=== PATIENT | male | born 1955 | race Caucasian/White ===

== ENCOUNTER 2017-01-17 08:57 | Day surgery (SDC) | payer OTHER ==
[~2017-01-17] VITALS: Ht 182.9 cm; Wt 68.0 kg
[~2017-01-17 08:57] MED LIST: COZ50 PO; FLO44 INH; GABA300C PO; GABA300S PO; MELA10CA PO; METO50TA PO; NIAC500T82 PO; NICOTINE; NICOTROL NS; OXY5 PO; PRAM0.5T PO; PRAV10TA2 PO; TIOT18CA INH; WARF5TAB7 PO; [UNRECOGNIZED DRUG - CODE] ORAL; [UNRECOGNIZED DRUG - CODE] PO; [UNRECOGNIZED DRUG - CODE] SL
[2017-01-17] MEDS ORDERED: MethylprednisoLONE Depot 80 mg/mL Inj IM ONE (08:58)
[2017-01-17 10:36] VITALS: BP 133/91; PULSE 66; RESP 14; O2SAT 95
[2017-01-17] MEDS ORDERED: ATRV10T PO (10:41)
[2017-01-17] MEDS ORDERED: ALBU8.5H2 INHALATION (10:41)
[2017-01-17] MEDS ORDERED: BECL8.7A5 INHALATION (10:41)
[2017-01-17 11:00] VITALS: BP 163/96; PULSE 69; RESP 16; O2SAT 95
--- NOTE | 2017-01-17 15:31 | PCM.PROC ---
Procedure Note Date of Service: Jan 17, 2017 Pre Procedure Diagnosis: PROCEDURE: Lumbar Interlaminar epidural steroid injection. RIGHT paramedian L3- L4 ASA / ANTI-COAGULATION . No asa x 7 days. INR 1.0 PRE-PROCEDURE DIAGNOSIS: Lumbar radiculopathy POST-PROCEDURE DIAGNOSIS: same INDICATION: 61-year-old patient referred by Dr. Phelps for RIGHT paramedian L3- L4 interlaminar epidural steroid injection for lumbar radiculopathy PERFORMED BY: Román Pan MD DESCRIPTION OF PROCEDURE: Patient was met in the holding area. Consent was signed, site was confirmed and all questions were answered. Patient was taken to the procedure suite and placed prone on the procedure table. Area was prepped and draped in sterile fashion. Local anesthesia with 1% lidocaine was injected. An 18-gauge Touhy needle was advanced toward the interlaminar space using fluoroscopic guidance after optimizing the AP view. A loss of resistance syringe was attached as we approached the epidural space in the lateral view. After [id number] was obtained, radioopaque contrast was injected under live fluro which confirmed epidural placement without intravascular uptake. Then , 80 mg depomedrol was injected without difficulty. ANESTHESIA: Local. EBL: None. No Blood Products Used COMPLICATIONS: None SPECIMENS: None POST-PROCEDURE DISPOSITION: Patient was returned to the holding area in stable condition. They were discharged home when all discharge criteria were met. Evaluation/Physical Exam before discharge revealed: DISCHARGE MEDICATIONS: FOLLOW UP: Followup with Dr. Phelps in 4 weeks Resumed warfarin tonight Román Pan MD * Pain Management * Anesthesiology .ED: Y: Patient given care and follow up instructions Román Pan MD Jan 17, 2017 15:31
[2017-04-11] MEDS ORDERED: METO25TA6 PO (14:37)
[2017-04-11] MEDS ORDERED: MULT-1093 PO (14:37)
[2017-04-11] MEDS ORDERED: GABA600T2 PO (14:37)
[2017-04-11] MEDS ORDERED: FLUT10.62 IH (14:37)
[2017-04-11] MEDS ORDERED: TIOT18CA3 IH (14:37)
[2017-04-11] MEDS ORDERED: LOSA50TA37 PO (14:37)
[2017-04-11] MEDS ORDERED: WARF1TAB6 PO (14:37)
== END 2017-01-17 23:59 | disposition home or self-care (01) ==
LOC: END 08:57
PROVIDERS: ATTEND Anesthesiology Pain Medicine
DX: M54.16 Radiculopathy, lumbar region (principal); M54.12 Radiculopathy, cervical region; I25.10 Atherosclerotic heart disease of native coronary artery without angina pectoris; I63.8 Other cerebral infarction; G81.91 Hemiplegia, unspecified affecting right dominant side; I48.91 Unspecified atrial fibrillation; G47.30 Sleep apnea, unspecified; F17.210 Nicotine dependence, cigarettes, uncomplicated; Z79.01 Long term (current) use of anticoagulants
CPT/HCPCS: 62323; J1040

== ENCOUNTER 2017-08-13 14:31 | Observation (INO) | payer MEDICAID, OTHER ==
[2017-08-13] VITALS (15 sets, daily range): BP systolic 137–181; BP diastolic 84–125; PULSE 70–81; RESP 11–26; O2SAT 88–98
[~2017-08-13] VITALS: Ht 182.9 cm; Wt 62.3 kg
[~2017-08-13 14:31] MED LIST changes: +ALBU8.5H2 INHALATION; +ATRV10T PO; -COZ50 PO; -FLO44 INH; +FLUT10.62 IH; -GABA300C PO; -GABA300S PO; +GABA600T2 PO; +LOSA50TA37 PO; -MELA10CA PO; +METO25TA6 PO; -METO50TA PO; +MULT-1093 PO; -NIAC500T82 PO; -NICOTINE; -NICOTROL NS; -OXY5 PO; -PRAM0.5T PO; -PRAV10TA2 PO; -TIOT18CA INH; +TIOT18CA3 IH; +WARF1TAB6 PO; -[UNRECOGNIZED DRUG - CODE] SL
--- NOTE | 2017-08-13 15:09 | ED.REPORT ---
HPI-General Illness Date of Service Aug 13, 2017 ED Provider: Maximiliano Hollis DO The pt is a 61 y/o male on Warfarin with hx of CVA, CAD, HTN, COPD, hyperlipidemia and peripheral neuropathy who is referred to the ED due to HTN and low O2. He was seen by [facility] today, at which point his blood pressure and oxygen were noted to be abnormal. The pt admits to three weeks of lightheadedness, mild headache, intermittent shortness of breath and productive cough with clear sputum. He denies chest pain or fever. The pt does not use home oxygen but does use albuterol and a QVAR inhaler daily. The pt last had his INR checked one month ago and it was 2.8. Nursing Notes Stated Complaint: HIGH BP,LOW OXYGEN Chief Complaint: General Complaint Nursing Notes Reviewed: Yes Allergies: Coded Allergies: Benzodiazepines (Verified Allergy, Intermediate, 08/13/17) bacitracin (Verified Allergy, Intermediate, 08/13/17) bacitracin zinc (Verified Allergy, Intermediate, 08/13/17) clonidine (Verified Allergy, Intermediate, 08/13/17) colistimethate sodium (Verified Allergy, Intermediate, 08/13/17) gramicidin D (Verified Allergy, Intermediate, 08/13/17) neomycin (Verified Allergy, Intermediate, 08/13/17) neomycin sulfate (Verified Allergy, Intermediate, 08/13/17) polymyxin B (Verified Allergy, Intermediate, 08/13/17) polymyxin B sulfate (Verified Allergy, Intermediate, 08/13/17) pramoxine HCl (Verified Allergy, Intermediate, 08/13/17) simvastatin (Verified Allergy, Intermediate, diahrea, 08/13/17) Scheduled Albuterol HFA (Proair HFA) 8.5 Gm Hfa.aer.ad 2 PUFFS INHALATION Q4H Atorvastatin (Lipitor) 10 Mg Tab 10 MG PO DAILY Cod Liver Oil (Cod Liver Oil) 1 Ml Oil 1 TSP ORAL DAILY Fluticasone Propionate (Flovent HFA 44 mcg) 10.6 Gm Aer.w.adap 2 PUFFS IH BID Gabapentin (Gabapentin) 600 Mg Tablet 600 MG PO QID Losartan Potassium (Losartan Potassium) 50 Mg Tablet 50 MG PO DAILY Metoprolol Tartrate (Metoprolol Tartrate) 25 Mg Tablet 25 MG PO BID Multivitamin-Min/Iron/FA/Vit K (Multi-Day Plus Minerals Tablet) 18 Mg Iron-400 Mcg-25 Mcg Tablet 1 EACH PO DAILY Tiotropium [place] (Spiriva) 18 Mcg Cap.w.dev 18 MCG IH DAILY Warfarin Sodium (Warfarin Sodium) 5 Mg Tablet 5 MG PO DAILY Warfarin Sodium (Warfarin Sodium) 1 Mg Tablet 1 MG PO DAILY 5x per week Scheduled PRN Acetamin/Butalbital/Caffeine (Butalbital/Apap/Caffeine) 1 Ea Tab 1 TAB PO Q4-6H PRN PRN General Time Seen by MD: 14:55 Chief Complaint Other (High BP/low O2) Hx Obtained From: Patient Arrived By: Walk-in Sudden in Onset?: No Symptom Duration: Since onset Recent Healthcare: No recent hospitalization, Recent doctor visit Similar Sx Previous: Yes Past Medical History Past Medical History Afib Aug 2012 Depression Anxiety PTSD ADHD CVA CAD Peripheral neuropathy Reports: COPD, Hyperlipidemia, Hypertension Past Surgical History Spinal fusion Family History stroke (father) Smoking History Current Every Day Smoker (1 PPD) Social History Chews nicotine lozenges Alcohol Use: Denies alcohol use Drug Use: THC (Former user) Other Social History: Lives alone Ambulatory Status Independent Review of Systems Full Review of Systems Constitutional: Denies: Chills, Fever Eyes: Denies: Blurred bilateral Respiratory: Reports: Prod cough, clear, Shortness of breath Cardiovascular: Denies: Chest pain GI: Denies: Abdominal pain, Vomiting Musculoskeletal: Denies: Back pain, Neck pain Skin: Denies Itching Allergy / Immune: Denies: Itching Neurologic: Reports: Headache, Lightheaded Complete sys rev & neg: except as marked. Physical Exam Vital Signs Vital Signs Date Time Temp Pulse Resp B/P Pulse Ox O2 Delivery O2 Flow Rate FiO2 08/13/17 21:00 77 15 161/87 95 Nasal Cannula 3 08/13/17 20:41 76 14 156/104 94 Nasal Cannula 3 08/13/17 20:13 81 13 172/96 Nasal Cannula 3 08/13/17 19:50 80 26 176/115 96 08/13/17 19:35 75 16 95 Nasal Cannula 4 08/13/17 19:33 76 15 173/110 95 Nasal Cannula 3 08/13/17 19:15 77 17 145/91 95 Room Air 08/13/17 19:10 77 12 181/105 94 Nasal Cannula 3 08/13/17 18:54 78 11 164/92 95 Nasal Cannula 2 08/13/17 17:13 80 14 180/96 97 Room Air 08/13/17 16:40 77 13 170/91 97 Nasal Cannula 2 08/13/17 16:22 74 20 96 Nasal Cannula 3 08/13/17 16:06 70 13 162/125 98 Nasal Cannula 08/13/17 14:39 37.0 76 24 180/115 88 Room Air Initial VS: Reviewed General/Constitutional: Well-developed, Well-nourished Head / Eyes: Atraumatic, Normocephalic, PERRL Neck: Supple, Full range of motion Cardiovascular: Regular rate & rhythm, Heart sounds normal, Intact distal pulses Abdomen / GI: Soft, Non-tender Extremities: Vascular intact, Neuro intact Skin: Warm, Dry, No cyanosis Neurologic: Alert, Oriented, Nonfocal Psychiatric: Mood/affect normal, Behavior normal Respiratory / Chest: No respiratory distress significantly prolonged expiration w/ some diffuse expiratory wheezing and rhonchi. Interpretation & Diagnostics Lab Results Interpretation Result Diagram: 08/13/17 1515 08/13/17 1515 Test 08/13/17 15:15 08/13/17 15:19 08/13/17 18:39 White Blood Count 7.6th/mm3 (3.8-10.1) Red Blood Count 5.17mil/mm3 (4.40-5.80) Hemoglobin 15.7g/dL (13.8-17.2) Hematocrit 44.9% (41.0-50.0) Mean Corpuscular Volume 86.8fL (81-100) Mean Corpuscular Hemoglobin 30.4pg (27.0-35.0) Mean Corpuscular Hemoglobin Concent 35.0% (32.0-37.0) Red Cell Distribution Width 14.0% (12.3-15.4) Platelet Count 198bil/L (150-400) Neutrophils (%) (Auto) 51.6% (40-74) Lymphocytes (%) (Auto) 32.3% (14-46) Monocytes (%) (Auto) 8.3% (4-12) Eosinophils (%) (Auto) 6.1% (0-5) Basophils (%) (Auto) 1.6% (0-3) Sodium Level 129mEq/L (134-144) Potassium Level 4.0mEq/L (3.5-5.2) Chloride Level 89mEq/L (97-108) Carbon Dioxide Level 28mmol/L (18-29) Blood Urea Nitrogen 10mg/dL (8-27) Creatinine 0.67mg/dL (0.76-1.27) Estimat Glomerular Filtration Rate 128mL/min (>59) Glucose Level 82mg/dL (60-99) Calcium Level 9.2mg/dL (8.5-10.1) Magnesium Level 1.7mg/dL (1.6-2.6) Total Bilirubin 0.9mg/dL (0.0-1.2) Aspartate Amino Transf (AST/SGOT) 22U/L (0-50) Alanine Aminotransferase (ALT/SGPT) 25U/L (0-44) Alkaline Phosphatase 91U/L (25-160) Troponin T < 0.010ug/L (0.0-0.011) Pro-B-Type Natriuretic Peptide 142.0pg/mL (0-210) Total Protein 7.5g/dL (6.4-8.4) Albumin 4.2g/dL (3.4-5.0) Procalcitonin 0.02ng/mL (0.00-0.08) D-Dimer 0.58mg/L FEU (<0.50) Urine Color Yellow (YELLOW) Urine Appearance Clear (CLEAR,HAZY) Urine pH 6.0 (5.0-8.0) Urine Specific [place] 1.005 (1.003-1.035) Urine Protein Negativemg/dL (NEG,TRACE) Urine Glucose (UA) Negativemg/dL (NEGATIVE) Urine Ketones Negativemg/dL (NEGATIVE) Urine Occult Blood Small (NEGATIVE) Urine Nitrite Negative (NEGATIVE) Urine Bilirubin Negative (NEGATIVE) Urine Urobilinogen 1.0mg/dL (NORMAL) Urine Leukocyte Esterase Negative (NEGATIVE) Urine RBC 0-2/hpf (0-2) Urine WBC 0-5/hpf (0-5) Urine Epithelial Cells None/hpf (NONE-MOD) Urine Crystals None seen (NONE SEEN) Urine Bacteria None/hpf (NONE-FEW) Urine Hyaline Casts None/lpf (NONE) Urine Granular Casts None seen (NONE SEEN) Urine Waxy Casts None seen (NONE SEEN) Urine Red Blood Cell Casts None seen (NONE SEEN) Urine White Blood Cell Casts None seen (NONE SEEN) Urine Mucus None seen (None Seen) Urine Trichomonas None seen (NONE SEEN) Urine Yeast None (NONE SEEN) Urinalysis Comment None Urine Culture Reflexed Not indicated ECG Interpretation ECG Interpretation: Sinus rhythm with rate of [address] changes Time: 14:58 Interpreted by: ED physician X-Ray Chest Interpretation Chest Xray Interpretation: IMPRESSION: 1. New bandlike opacity within the peripheral left midlung. Although this may represent consolidation and pneumonia, short term followup is recommended to demonstrate resolution as a peripheral mass lesion cannot be excluded. Dictated by: Louis Lira M.D. on 08/13/2017 at 15:53 View: AP & lat Interpretation / Wet Read by: Interpret - Radiologist CT Chest Interpretation CT ANGIO CHEST PULMONARY EMBOLISM IMPRESSION: 1. No evidence of pulmonary embolism. 2. Severe centrilobular emphysematous changes bilaterally. 3. Dependent mucus in the bilateral mainstem bronchi suggesting aspiration. 4. Mild aneurysmal dilatation of the aorta as described. 5. Small left adrenal adenoma. Dictated by: Louis Lira M.D. on 08/13/2017 at 17:17 Study type: Chest CT w contrast, CT pulm angiogram Interpretation / Wet Read by: Interpret - Radiologist Re-Eval/Medical Decision Source of Hx: Old records Time of Eval: 18:03 Re-Evaluation/Progress Note: Pt rechecked. Informed pt of diagnosis and possibility of discharge. The pt understands and agrees with the plan. Time of Eval: 18:31 Re-Evaluation/Progress Note: Pt rechecked. Options for either discharge or admission arediscussed. If the pt can get O2 to take home, he may be discharged. If he cannot, he will be admitted. Time of Eval: 18:45 Re-Evaluation/Progress Note: Pt informed of the options and conditions for him to take O2 home. He has decided on the portable O2 tank if he is discharged. Time of Eval: 19:24 Re-Evaluation/Progress Note: Pt rechecked, whose blood pressure has increased and who is not breathing as easily. The possibility of admission rather than discharge with home O2 is discussed. Time of Eval: 19:49 Re-Evaluation/Progress Note: Pt rechecked, who is stable. The plan for admission is discussed. The pt understands and agrees with the plan. All questions are addressed at this time. Consultation : Referral / Consult Name: Becca Harry Consulted With: Hospitalist Call Returned at: 20:23 Food Service Kitchen Supervisor: Will see patient, Agrees with eval, Agrees with plan, Accepts admit Counseled Regarding: Diagnosis, Lab results, Need for admission Discharge & Departure Primary Impression: COPD exacerbation Additional Impressions: Hypoxia Hyponatremia Disposition: ADMITTED TO HOSPITAL Discharge Condition All VS Reviewed: Yes Condition: Stable Referrals: Stephanie Teixeira MD (PCP) Scribe Attestation Portions of this note were transcribed by Flory Darnell and Nabor Taylor. I, Dr. Rudy Hollis personally performed the history, physical exam and medical decision-making; I reviewed and confirmed the accuracy of the information in the transcribed note. Signed by: Armida Tijerina, 08/13/17. copies to: Stephanie Teixeira MD, Gary R DO Aug 13, 2017 15:09 Flory Darnell Aug 13, 2017 15:25 NABOR TAYLOR Aug 13, 2017 21:29
[2017-08-13 15:25] LABS: BASOPHILS % (AUTO) 1.6 % (0-3); EOSINOPHILS % (AUTO) 6.1 % (0-5); MONOCYTES % (AUTO) 8.3 % (4-12); Mean Corpuscular Hemoglobin 30.4 pg (27.0-35.0); Mean Corpuscular Volume 86.8 fL (81-100); NEUTROPHILS % (AUTO) 51.6 % (40-74); Platelet Count 198 bil/L (150-400)
[2017-08-13] MEDS ORDERED: Albuterol 2.5 mg/3 mL Inhalation Solution NEB ONE ×2 (15:50→19:30)
[2017-08-13] MEDS ORDERED: Albuterol-Ipratropium 3 mL Inhalation Solution NEB ONE (15:50)
--- NOTE | 2017-08-13 15:59 | DRSVH ---
6 [id number]: X-RAY CHEST, TWO VIEWS ([id number]) INDICATIONS: SHORT OF BREATH TECHNIQUE: 2 views of the chest were acquired. COMPARISON: [facility], , CHEST 2VW, 03/06/2015, 15:53. FINDINGS: Surgical changes and devices: None. Lungs and pleura: No pleural effusions or pneumothorax. There is hyperinflation of the lungs with f lattening of the hemidiaphragms compatible with COPD. there is a new peripheral bandlike opacity in the left midlung. Mild bibasilar scarring and chronic interstitial opacities are redemonstrated. Mediastinum: Mediastinal contours are unchanged. Heart size is normal. Bones and chest wall: No suspicious bony abnormalities. Soft tissues appear unremarkable. IMPRESSION: 1. New bandlike opacity within the peripheral left midlung. Although this may represent consolidati on and pneumonia, short term followup is recommended to demonstrate resolution as a peripheral mass l esion cannot be excluded. Dictated by: Louis Lira M.D. on 08/13/2017 at 15:53 Approved by: Odalys Lira M.D. on 08/13/2017 at 15:57 6 6
[2017-08-13 16:11] LABS: Magnesium 1.7 mg/dL (1.6-2.6)
[2017-08-13 16:14] LABS: TROPONIN T < 0.010 ug/L (0.0-0.011)
--- NOTE | 2017-08-13 17:27 | DRSVH ---
PROCEDURE: CT ANGIO CHEST PULMONARY EMBOLISM ([id number]) INDICATIONS: sob, hypoxia TECHNIQUE: After the administration of intravenous contrast, 2 mm thick sections acquired from the pulmonary api danielle to the posterior costophrenic angles. 3-dimensional maximum intensity projection (MIP) coronal a nd sagittal reformats were then acquired through the thorax. For radiation dose reduction, the follo wing was used: automated exposure control, adjustment of mA and/or kV according to patient size. COMPARISON: [facility], CR, XR CHEST 2VW, 08/13/2017, 15:15. [facility], CR, CHEST 2VW, 03/06/2015, 15:53. FINDINGS: Image quality: Excellent. Pulmonary arteries: Pulmonary arteries demonstrate no intraluminal filling defects to suggest centra l pulmonary embolism. Lungs and pleura: There are severe centrilobular emphysematous changes bilaterally. Peripheral reti cular opacities are demonstrated consistent with scarring and fibrotic changes. There is a small reg ion of pleural thickening peripherally in the left upper lobe corresponding to the opacity on x-ray l ikely representing scarring. No acute consolidation. No pleural effusions or pneumothorax. There i s dependent mucus within the mainstem bronchi bilaterally. Mediastinum: Heart size is normal, without pericardial effusion. There is mild aneurysmal dilatatio n of the thoracic aorta. The ascending thoracic aorta measures up to approximately 4 cm in diameter. The aortic arch measures up to 3.0 cm. The descending aorta measures up to 3.0 cm proximally. At the level of the diaphragmatic hiatus, the aorta measures up to 3.4 cm. The visualized suprarenal ab dominal aorta measures up to 3.0 cm. No mediastinal or hilar adenopathy by size criteria. Esophagus is normal in caliber, without hiatal hernia. Bones and chest wall: No suspicious bony lesions. Ribs and thoracic spine appear intact throughout. Thyroid gland demonstrates no discrete nodules. No axillary or supraclavicular adenopathy. Abdomen: Visualized upper abdomen demonstrates a left adrenal nodule measuring up to 1.9 cm with att enuation values consistent with an adenoma. There is suggestion of gastric wall thickening. IMPRESSION: 1. No evidence of pulmonary embolism. 2. Severe centrilobular emphysematous changes bilaterally. 3. Dependent mucus in the bilateral mainstem bronchi suggesting aspiration. 4. Mild aneurysmal dilatation of the aorta as described. 5. Small left adrenal adenoma. Dictated by: Louis Lira M.D. on 08/13/2017 at 17:17 Approved by: Louis Lira M.D. on 08/13/2017 at 17:25
[2017-08-13] MEDS ORDERED: MethylprednisoLONE Sodium Succinate 62.5 mg/mL 2 mL Inj IVPUSH ONE (18:00)
[2017-08-13] MEDS: Labetalol 5 mg/mL 20 mL Inj IVPUSH ONE ×3 (18:54→19:15)
[2017-08-13 18:56] LABS: APPEARANCE,URINE CLEAR (CLEAR,HAZY); COLOR,URINE YELLOW (YELLOW)
[2017-08-13 18:57] LABS: OCCULT BLOOD,URINE SMALL (NEGATIVE)
[2017-08-13] MEDS ORDERED: Nitroglycerin 2% 1 Gm Ointment TOPICAL ONE ×2 (19:27→19:30)
[2017-08-13] MEDS ORDERED: Polyethylene Glycol (PEG) 17 Gm Powder PO PRN (20:40)
[2017-08-13] MEDS ORDERED: Ondansetron 2 mg/mL 2 mL Inj IVPUSH PRN (20:40)
[2017-08-13] MEDS ORDERED: Alum-Mag Hydrox-Simeth 30 mL Suspension PO PRN (20:40)
[2017-08-13 21:02] LABS: INR 2.44 ratio
[2017-08-13] MEDS ORDERED: BECL8.7A6 INHALATION (22:20)
[2017-08-13] MEDS ORDERED: MELA5TAB12 PO (22:25)
[2017-08-13] MEDS ORDERED: Albuterol 2.5 mg/3 mL Inhalation Solution NEB PRN (22:45)
[2017-08-13] MEDS ORDERED: 0.9% Sodium Chloride 1,000 ML IV SCH (23:00)
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
[2017-08-13] MEDS: Fluticasone 100 mCg Inhaler INHALATION SCH (23:26)
[2017-08-14] VITALS (8 sets, daily range): BP systolic 130–149; BP diastolic 82–92; PULSE 81–110; RESP 18; O2SAT 88–94
[2017-08-14] MEDS ORDERED: Heparin 5,000 Unit/mL Inj SUBQ SCH (00:30)
[2017-08-14] MEDS ORDERED: ACET1TAB44 (04:47)
[2017-08-14] MEDS: Codeine-APAP 30-300 mg Tablet PO PRN ×3 (05:48→14:55)
[2017-08-14] MEDS ORDERED: Albuterol-Ipratropium 3 mL Inhalation Solution NEB SCH ×2 (06:00→11:00)
[2017-08-14 06:51] LABS: BASOPHILS % (AUTO) 0.2 % (0-3); EOSINOPHILS % (AUTO) 0 % (0-5); MONOCYTES % (AUTO) 2.6 % (4-12); Mean Corpuscular Hemoglobin 30.4 pg (27.0-35.0); Mean Corpuscular Volume 87.5 fL (81-100); NEUTROPHILS % (AUTO) 85.4 % (40-74); Platelet Count 180 bil/L (150-400)
[2017-08-14 06:56] LABS: INR 2.4 ratio
[2017-08-14] MEDS ORDERED: predniSONE 20 mg Tablet PO SCH (08:30)
[2017-08-14] MEDS: Fluticasone 100 mCg Inhaler INHALATION SCH (08:30)
[2017-08-14] MEDS ORDERED: Tiotropium 18mcg/Cap 5 Capsule Inhaler Kit INHALATION SCH (08:30)
--- NOTE | 2017-08-14 10:15 | NUR ---
O2 Pt on 2L O2 via NC, sating 97% while asleep. Oxygen turned off, Cpox in place, sats range from 93% to 88%. Cpox triggered at 87%, pt encouraged to take a deep breath, sats miah to 91%. Call light in reach, will continue to monitor.
--- NOTE | 2017-08-14 11:46 | PCM.PHAPRO ---
Progress Shortness of breath WARFARIN DAILY DOSING Indication: history of CVA x2 Goal INR: 2-3 Home dose: 7mg daily Date Aug 14-Jul INR 2.44 2.4 INR change -0.04 Warf Dose 7 7MG Brooke Ramesh Pharm.D Aug 14, 2017 11:46
--- NOTE | 2017-08-14 14:11 | PCM.DIMED ---
Discharge Instructions Date of Service Aug 14, 2017 Dates of Hospitalization Aug 13, 2017 at 21:01 Discharge Diagnosis Discharge Diagnosis 1. Acute COPD exacerbation, improved 2. Acute respiratory failure with hypoxia, present on admission and improved. 3. Hypovolemic hyponatremia, present on admission, and improved. 4. Essential Hypertension, stable 5. Peripheral neuropathy, stable. 6. History of CVA 2, stable. 7. Tobacco use disorder, stable. Diet Discharge Diet: No restrictions Activity Discharge Activity: Limited until seen by PCP Call your provider Call your provider for: Fever or Chills, Shortness of breath Patient Instructions Follow-up Provider: Stephanie Teixeira MD Follow-up with PCP in: 1 week Harjinder Power MD Aug 14, 2017 14:11
[2017-08-14] MEDS ORDERED: PRE20 PO (14:12)
--- NOTE | 2017-08-14 15:09 | NUR ---
Discharge Pt discharged at this time, all belongings gathered and returned to pt. VSS, No complains of increased pain, SOB or chest discomfort. Pt to go home on oxygen. Hard copy of new script given to pt to fill. IV D/Cd intact, tele removed. Discharge packet printed and reviewed with pt. Pt calling cab for ride home. Addendum: 08/14/17 at 1528 by ISAURA PERES RN Pt taken from [facility] in wheelchair by NICOLAS to front entrance, will call cab for ride home.
--- NOTE | 2017-08-14 15:26 | NUR ---
Social Work-initial assessment/ discharge: Data:See initial assessment. Pt is a 61 y/o male who was admitted on 08/13/17 for COPD per H&P. Pt's insurance is [facility] Blind/disabled and PCP is Stephanie Teixeira MD. EMR reviewed. SW met with pt at bedside, SW role explained. Pt is alert and oriented x3. Pt resides at home alone where he remains independent with ADLs. Pt does not drive and uses [facility] at baseline. Pt has no HH or SNF history. Pt has no fpc care insurance or VA benefits. SW discussed DPOA/ advanced directive, pt declined any information. RT has seen pt and set him up with home O2 through [employer]. Pt has been up independent in his room. SW provided with discharge planning checklist and encouraged him to call with any questions. Pt states he will setup a tax ride home. 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 No SW needs identified. All updated and agreeable to plan. Assessment:Pt who is independent at baseline. Plan:Pt to discharge home today via POV. Pt has been set up with Home O2 through [employer]. No SW needs identified. All updated and agreeable to plan. MAURIZIO Lane Addendum: 08/14/17 at 1538 by PENELOPE GUDINO Amended: Links added.
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
== END 2017-08-14 16:41 | disposition home or self-care (01) ==
LOC: SED 14:31 → MPC 21:01 → INTOOBSV 21:01 → MPC 21:31
PROVIDERS: ADMIT Internal Medicine; ATTEND Hospitalist
DX: J96.01 Acute respiratory failure with hypoxia (principal); J44.1 Chronic obstructive pulmonary disease with (acute) exacerbation; E87.1 Hypo-osmolality and hyponatremia; E86.1 Hypovolemia; G62.89 Other specified polyneuropathies; I10 Essential (primary) hypertension; E78.5 Hyperlipidemia, unspecified; F17.210 Nicotine dependence, cigarettes, uncomplicated; Z86.73 Personal history of transient ischemic attack (TIA), and cerebral infarction without residual deficits; Z79.01 Long term (current) use of anticoagulants
CPT/HCPCS: 36415; 71020; 71275; 80048; 80053; 81000; 82948; 83735; 83880; 84145; 84484; 85025; 85378; 85610; 85730; 87633; 93005; 94640; 94664; 94799; 96374; 96375; 99285; G0378; J2930; J7030; J7613; J7620; Q9967